=== PATIENT | male | born 1975 | race African-American/Black ===

== ENCOUNTER 2017-12-13 20:54 | Emergency (ER) | payer SELFPAY ==
[~2017-12-13] VITALS: Ht 180.3 cm; Wt 72.6 kg
[~2017-12-13 20:54] MED LIST: ADVIR; MORPHINE; SYMBICORT; depakote
[2017-12-13] MEDS ORDERED: SODIUM CHLORIDE 0.9% 1,000 ML IV ONE (23:29)
[2017-12-13] MEDS ORDERED: ONDANSETRON HCL 4MG/2ML VIAL IV STA (23:29)
[2017-12-13 23:51] LABS: HEMATOCRIT. 43.4 % (42.0-52.0); HEMOGLOBIN. 14.5 g/dL (14.0-18.0); MEAN CORPUSCULAR HEMOGLOBIN 28.6 pg (28.0-32.0); MEAN CORPUSCULAR VOLUME 85.5 fL (80.0-94.0); MEAN PLATELET VOLUME 9.8 fl (7.4-10.4); PLATELET 194 x1000/uL (130-400); RED BLOOD CELL COUNT 5.07 mill/uL (4.7-6.1); RED CELL DISTRIBUTION WIDTH 13.1 % (11.6-14.6)
[2017-12-13 23:52] LABS: CHLORIDE 104 mEq/L (98-107)
[2017-12-13 23:57] LABS: ETHANOL BLOOD < 10 mg/dL
[2017-12-14 01:17] LABS: PLATELET ESTIMATE NORMAL
[2017-12-14 03:09] VITALS: BP 115/66
== END 2017-12-14 03:30 | disposition home or self-care (01) ==
LOC: ER 20:54
DX: F12.10 Cannabis abuse, uncomplicated (principal); F17.200 Nicotine dependence, unspecified, uncomplicated; F15.10 Other stimulant abuse, uncomplicated; F14.10 Cocaine abuse, uncomplicated; Z88.6 Allergy status to analgesic agent; Z88.8 Allergy status to other drugs, medicaments and biological substances; Z98.890 Other specified postprocedural states
CPT/HCPCS: 36415; 80053; 85025; 96361; 96374; 99285; G0482; J2405; J7030; Z7610

== ENCOUNTER 2018-09-06 23:30 | Emergency (ER) | payer MEDICAID ==
[~2018-09-06] VITALS: Ht 180.3 cm; Wt 75.0 kg
[2018-09-06 23:52] VITALS: BP 136/71
[2018-09-07] MEDS ORDERED: GABAPENTIN 400MG CAPSULE PO ONE (01:30)
== END 2018-09-07 01:44 | disposition home or self-care (01) ==
LOC: ER 23:30
DX: S82.201A Unspecified fracture of shaft of right tibia, initial encounter for closed fracture (principal); X58.XXXA Exposure to other specified factors, initial encounter; Y93.9 Activity, unspecified; Y92.9 Unspecified place or not applicable
CPT/HCPCS: 99283

== ENCOUNTER 2024-04-08 16:04 | Emergency (ER) | payer MEDICAID ==
[~2024-04-08] VITALS: Ht 175.3 cm; Wt 73.0 kg
[2024-04-08 16:06] VITALS: O2SAT 99
[2024-04-08] MEDS ORDERED: CYCLOBENZAPRINE 10MG TABLET PO ONE (17:30)
[2024-04-08] MEDS ORDERED: CYCL10TA21 MT (18:26)
[2024-04-08 19:09] VITALS: BP 143/89; PULSE 56; RESP 16; TEMP 36.78072; O2SAT 100
== END 2024-04-08 19:11 | disposition home or self-care (01) ==
LOC: ER 16:04
DX: S20.211A Contusion of right front wall of thorax, initial encounter (principal); S70.01XA Contusion of right hip, initial encounter; Z88.5 Allergy status to narcotic agent; Z88.6 Allergy status to analgesic agent; X58.XXXA Exposure to other specified factors, initial encounter; Y93.89 Activity, other specified; Y92.89 Other specified places as the place of occurrence of the external cause; Y99.8 Other external cause status
CPT/HCPCS: 73502; 71101; 99284; Z7610